=== PATIENT | female | born 1985 | race Caucasian/White ===

== ENCOUNTER → 2019-01-30 | Outpatient (CLI) | payer OTHER ==
[2019-01-30 15:18] LABS: ABSOLUTE NEUTROPHILS 5.2 thou/uL (1.4-8.2); LYMPHOCYTES 35.5 % (24.0-44.0); MCH 31.1 pg (26.0-34.0)
[2019-01-30 15:19] LABS: BASOPHILS 0.6 % (0.0-2.0); EOSINOPHILS 0.5 % (0.0-3.0); HEMATOCRIT 41.3 % (37.0-47.0); HEMOGLOBIN 14.3 gm/dL (12.0-15.0); MCHC 34.5 g/dL (28.0-37.0); PLATELET COUNT 356 thou/uL (150-400); POLYS 57.4 % (36.0-66.0); RBC 4.59 mil/uL (4.20-5.00); RDW 13.2 % (10.5-14.5); WBC 9.1 thou/uL (4.0-11.0)
== END ==
LOC: LAB 14:51
PROVIDERS: Internal Medicine Pulmonary Disease
DX: J45.40 Moderate persistent asthma, uncomplicated (principal); J30.2 Other seasonal allergic rhinitis